=== PATIENT | female | born 1945 | race Caucasian/White ===

== ENCOUNTER 2017-06-10 08:42 | Outpatient (CLI) | payer MEDICARE ==
--- NOTE | 2017-06-10 13:52 | RAD ---
TWO VIEWS CHEST: HISTORY: Preoperative exam. COMPARISON: 09/05/2015 FINDINGS: Normal cardiac silhouette. Pulmonary vessels and hilum are normal. Costophrenic angles are clear. No masses or consolidation. No pneumothorax or osseous abnormalities. Calcified granuloma in the li ngula is noted. Interval removal of dorsal column stimulator. IMPRESSION: No acute cardiopulmonary process. POS: [facility]
--- NOTE | 2017-07-07 11:06 | EKG ---
Test Reason : Blood Pressure : / mmHG Vent. Rate : 051 BPM Atrial Rate : 051 BPM P-R Int : 170 ms QRS Dur : 086 ms QT Int : 434 ms P-R-T Axes : -13 -05 002 degrees QTc Int : 400 ms Sinus bradycardia Moderate voltage criteria for LVH, may be normal variant Borderline ECG Confirmed by ANGIE BROOKS M.D. ([id number] on 07/07/2017 11:06:07 AM Referred By: AMY Confirmed By:ANGIE BROOKS M.D.
== END 2017-06-10 08:43 | disposition home or self-care (01) ==
LOC: LABBT 08:42
PROVIDERS: ATTEND Orthopaedic Surgery
DX: Z01.818 Encounter for other preprocedural examination (principal); M16.11 Unilateral primary osteoarthritis, right hip
CPT/HCPCS: 71046; 93005; 93010

== ENCOUNTER 2017-06-10 09:00 | Inpatient (IN) | payer MEDICARE ==
[2017-06-10 09:00] VITALS: BMI 42.9
[2017-06-24] MEDS ORDERED: CEFAZOLIN/Water 2 GM/20 ML SYRINGE ONE (06:49)
[2017-06-24] MEDS ORDERED: Vancomycin HCl 1.5 GM, Admixture Fee 1 EACH in Sodium Chloride 0.9% 250 ML 300 ML IVPB SCH (07:00)
[2017-06-24] MEDS ORDERED: Fentanyl 100 MCG/2 ML VIAL SLOW IVP PRN ×2 (07:03)
[2017-06-24] MEDS ORDERED: diphenhydrAMINE 25 MG CAP PO PRN (07:03)
[2017-06-24] MEDS ORDERED: Ondansetron HCl/PF 4 MG/2 ML Vial IVP PRN ×4 (07:03→11:40)
[2017-06-24] MEDS ORDERED: traMADol HCl 50 MG TAB PO PRN ×3 (07:03→08:30)
[2017-06-24] MEDS ORDERED: HYDROcodone/Acetaminophen 10/325 mg Tablet PO PRN ×2 (07:03)
[2017-06-24] MEDS ORDERED: Zolpidem Tartrate 5 MG TAB PO PRN ×2 (07:03→08:30)
[2017-06-24] MEDS ORDERED: Acetaminophen 325 MG TAB PO PRN (07:03)
[2017-06-24] MEDS ORDERED: Promethazine HCl 25 MG/ML VIAL IM PRN ×4 (07:03→11:40)
[2017-06-24] MEDS ORDERED: Non-Formulary Item 1 EACH (Tizanidine Hcl [Tizanidine Hcl] 4 MG) PO PRN ×2 (07:03)
[2017-06-24] MEDS ORDERED: Tranexamic Acid 1,000 MG in Sodium Chloride 0.9% 100 ML IVPB SCH (07:15)
[2017-06-24] MEDS ORDERED: Midazolam HCl 2 mg/2 ml Vial ONE (07:24)
[2017-06-24] MEDS ORDERED: tiZANidine HCl 4 MG TAB PO PRN (07:41)
[2017-06-24] MEDS ORDERED: Hydrocerin (Eucerin) Cream 120 gm Jar TOP PRN (08:30)
[2017-06-24] MEDS ORDERED: fentaNYL Citrate/PF 1,250 MCG, Bupivacaine 25 ML in Sodium Chloride 0.9% 250 ML 200 ML EPIDURAL SCH (08:30)
[2017-06-24] MEDS ORDERED: HYDROcodone/Acetaminophen 5/325 mg Tablet PO PRN (08:30)
[2017-06-24] MEDS ORDERED: Ketorolac Tromethamine 30 MG/ML VIAL IVP PRN (08:30)
[2017-06-24] MEDS ORDERED: diphenhydrAMINE 50 MG/ML VIAL IM PRN (08:30)
[2017-06-24] MEDS ORDERED: Naloxone HCl 0.4 mg/ml Vial IV PRN (08:30)
[2017-06-24] MEDS ORDERED: Promethazine HCl 25 MG SUPP PR PRN (08:30)
[2017-06-24] MEDS ORDERED: Bupivacaine 0.25% 10 ML VIAL EPIDURAL PRN (08:30)
[2017-06-24] MEDS ORDERED: diphenhydrAMINE 50 MG/ML VIAL IVP PRN (08:30)
[2017-06-24] MEDS ORDERED: Naloxone HCl 0.4 mg/ml Vial IVP PRN (08:30)
[2017-06-24] MEDS ORDERED: Levothyroxine Sodium 100 MCG TAB PO SCH (09:00)
[2017-06-24] MEDS ORDERED: MULTIVITAMIN PO SCH ×2 (09:00)
[2017-06-24] MEDS ORDERED: THIAMINE HCL 250 MG PO SCH ×2 (09:00)
[2017-06-24] MEDS ORDERED: Gabapentin 100 MG CAP PO SCH (09:00)
[2017-06-24] MEDS ORDERED: Non-Formulary Item 1 EACH (Omeprazole [Omeprazole] 40 MG) PO SCH ×2 (09:00)
[2017-06-24] MEDS ORDERED: Fentanyl 100 MCG/2 ML VIAL ONE (10:04)
[2017-06-24] MEDS ORDERED: Bupivacaine/Epinephrine 0.25% 30 ML VIAL ONE (11:25)
[2017-06-24] MEDS ORDERED: HYDROmorphone 2 MG/ML VIAL SLOW IVP PRN ×2 (11:40)
[2017-06-24] MEDS ORDERED: Promethazine HCl 25 MG/ML VIAL SLOW IVP PRN ×2 (11:40)
--- NOTE | 2017-06-24 12:16 | OP ---
DATE OF PROCEDURE: 06/24/2017 PREOPERATIVE DIAGNOSIS: End-stage bicompartmental osteoarthritis, right hip. POSTOPERATIVE DIAGNOSIS: End-stage bicompartmental osteoarthritis, right hip. OPERATIVE PROCEDURE: Press-Fit right total hip arthroplasty. SURGEON: Percy Arredondo M.D. LIVESTOCK TRADER: Efren Slater PA-C. ANESTHESIA: General via endotracheal tube augmented with indwelling epidural. COMPONENTS USED: [employer] Tritanium 54 mm cluster hole shell with two 6.5 cancellous bone screws, 30 mm length and 20 mm length, Trident 10 degree polyethylene fixed bearing insert, a size 4 .5 Accolade Press-Fit hip stem with a -5 metallic femoral head 36 mm outer diameter. ESTIMATED BLOOD LOSS: 200 mL. FINDINGS: End-stage degenerative bicompartmental disease, bone on bone arthrosis, periarticular oste ophyte formation, large serous effusion, hypertrophic synovium, hypertrophic capsule. DRAINS: None. SPECIMENS: None. COMPLICATIONS: None. COUNTS: Correct. INDICATIONS FOR SURGERY: Jazzy is a 71-year-old white female who has had progressive right hip, gr oin and thigh pain upon standing and walking for greater than 10 years. She has failed conservative management. Plain radiographs demonstrated evidence of dysplasia and changes consistent with severe degenerative osteoarthrosis. PROCEDURE IN DETAIL: After informed consent was obtained in the preoperative holding area, the patie nt was taken to the operative suite where general anesthesia was induced. The patient was then posit ioned in the lateral decubitus position. The hip was then prepped and draped in usual sterile fashio n. The patient received preoperative antibiotics. Prior to incision, time-out was called and all me mbers of the surgical team agreed upon site, surgeon, and patient. After this, a longitudinal incisi on was made directly over the trochanter, noted by palpation extending 2 fingerbreadths above and bel ow the trochanter. The deeper subcutaneous layer was undermined with Bovie electrocautery. The ilio tibial band was encountered and incised sharply and the plane below this was developed bluntly. A lotus retractor was placed to hold this opened. The lateral aspect of the trochanter and the abduct or muscles were encountered and then reflected anteriorly off the trochanter using Bovie electrocaute ry. Once this was completed, the anterior capsule was then encountered and identified and copious ca psulotomy was carried out, exposing the femoral neck and head. Dislocation maneuver was then performe d and an in situ provisional neck cut was then made using the oscillating saw. Attention was then tu rned to acetabular preparation and sequential reaming was carried out up to the appropriate diameter and a trial was then malleted into place with good firm resistance and no pullout. The permanent vega tabular shell was then malleted squarely into place, as was the appropriate liner. Once completed, t he wound was copiously irrigated and attention was then turned to femoral preparation. Flexion and ex ternal rotation was performed of the exposed thigh and femoral elevators were then placed at the prox imal aspect of the wound. Canal finder was used to establish the length of the canal and sequential reaming was carried out, followed by broaching. Once the appropriate stability was established with the trial broaches with both flexion, extension and rotational stability, we did trial with neutral a nd 2 mm offset incremental necks. Once the appropriate size was decided upon, with good stability no gage with flexion, extension, internal and external rotation and shuck being negative, we removed the femoral trial broach and malletted into place the permanent prosthesis with good firm fit, which was also stable to rotation. Again, the hip felt very stable to flexion, extension, internal and externa l rotation. Leg lengths appeared near anatomic clinically and we were quite happy with prosthesis pl acement. Copious irrigation was then carried out through the entirety of the wound. Primary closure of the abductors was accomplished with interrupted #2 Vicryl [id number] stitches and the IT ban d was then closed with interrupted #2 Vicryl, oversewn with a #2 running barbed Quill stitch. Subcut aneous fascia was closed with running barbed Quill stitch and a subcuticular Monocryl barbed Quill st itch was used for skin closure and augmented with skin cement. A sterile dressing was applied. The p rocedure was terminated without any complication. All counts were correct. The patient was awakened in the operative suite and taken to the recovery room in stable condition.
[2017-06-24] MEDS: Sodium Chloride 0.9% 1,000 ML IV SCH ×2 (13:22→18:20)
[2017-06-24] MEDS: Aspirin 325 MG TAB PO SCH ×2 (13:22→21:06)
[2017-06-24] MEDS: Allopurinol 100 MG TAB PO SCH (13:22)
[2017-06-24] MEDS: Furosemide 80 MG TAB PO SCH (13:23)
[2017-06-24] MEDS: Gabapentin 400 MG CAP PO SCH (13:23)
[2017-06-24] MEDS: Metoprolol Tartrate 100 MG TAB PO SCH ×2 (13:23→21:06)
[2017-06-24] MEDS: Multivitamin W/ Minerals 1 TAB PO SCH (13:23)
[2017-06-24] MEDS: Ferrous Gluconate 324 MG TAB PO SCH ×2 (13:23→21:06)
[2017-06-24] MEDS: Senokot S 8.6-50 MG TAB PO SCH ×2 (13:24→21:06)
--- NOTE | 2017-06-24 13:53 | RAD ---
RIGHT HIP TWO VIEWS: HISTORY: A 71-year-old female with a history of prior right total hip replacement. COMPARISON: 04/02/2017 FINDINGS: There is evidence for total right hip replacement. No dislocation or periprosthetic fracture. IMPRESSION: Total hip replacement changes. POS: [facility]
[2017-06-24] MEDS ORDERED: Ketorolac Tromethamine 30 MG/ML VIAL IVP SCH (14:00)
[2017-06-24] MEDS: CEFAZOLIN/Water 2 GM/20 ML SYRINGE SLOW IVP SCH ×2 (14:33→21:07)
--- NOTE | 2017-06-24 14:50 | CON ---
DATE OF CONSULTATION: 06/24/[address] Percy Arredondo. PRIMARY CARE PROVIDER: Mati Cornejo M.D. at [facility]. HISTORY OF PRESENT ILLNESS: The patient is postop left total hip replacement for chronic disabling p ain in her left hip. Postoperatively, she has had no fever, no chills, no chest pain, no shortness o f breath, no nausea, vomiting. PAST MEDICAL HISTORY: Pertinent for hypertension, chronic back pain, total hip replacement, bilatera l total knee replacement, 2 back surgeries in the past year, gastric sleeve 2 years ago, cataract saulo abrahan bilaterally. ALLERGIES: No known allergies. HOME MEDICATIONS: Omeprazole 40 mg a day, allopurinol 100 mg a day, Tylenol #4 every 6 hours p.r.n. pain, metoprolol 100 mg twice a day, levothyroxine 88 mcg a day, Neurontin 800 mg in the morning, Las ix 60 mg in the morning, tizanidine 4 mg p.o. t.i.d. p.r.n. FAMILY HISTORY: Multiple members of her family with cancer, two aunts with breast cancer, a sister w ith ovarian cancer and a brother with prostate cancer. SOCIAL HISTORY: , no tobacco, no alcohol. FULL CODE status. , next of kin. REVIEW OF SYSTEMS: GENERAL: No headaches, dizziness, fever or chills. EYES: No double vision, santa rred vision, flashing lights. EAR, NOSE, AND THROAT: No ear pain or drainage. No nasal bleeding. No trouble swallowing. CARDIAC: No chest pain, orthopnea or paroxysmal nocturnal dyspnea. RESPIRAT ORY: No cough, wheezing or asthma. GASTROINTESTINAL: No nausea, vomiting, diarrhea or constipation . GENITOURINARY: No hematuria, dysuria or nocturia. MUSCULOSKELETAL: She has chronic swelling in her lower legs, some chronic erythema in her ankles. PSYCHIATRIC: No anxiety, depression. NEUROLOG ICAL: No strokes, seizures or focal weakness. SKIN: No chronic bruises, bleeding. No chronic rash except for some chronic mild erythema about her ankles. HEME/LYMPH: No tender or swollen lymph nod es in axilla, inguinal, or cervical area. PHYSICAL EXAMINATION: GENERAL APPEARANCE: The patient is alert, oriented, cooperative, pleasant lady. VITAL SIGNS: Blood pressure 120/70, pulse 50-60, and respirations 16. HEENT: Examination of his head, eyes, ears, nose, and throat reveal pupils are equal and round, bila teral implants. Extraocular movements are intact. Sclerae are white. Tympanic membranes clear. No se is clear. Oral mucous membranes are wet. Dental hygiene is good. NECK: No jugular venous distention, adenopathy or thyromegaly. CHEST: Clear to auscultation and percussion. HEART: Regular rate and rhythm. First and second heart sounds are clear. There are no appreciated murmurs or gallops. ABDOMEN: Soft, bowel sounds are normal. There is no hepatosplenomegaly, no mass, no rebound, no bru its. EXTREMITIES: Reveal 1-2+ edema with no cyanosis or clubbing. There is some minimal erythema about r ight both ankles with no tenderness or heat. PULSES: Carotid, radial, femoral, and dorsalis pedis pulses intact. SKIN: No bruises or chronic rashes. HEME/LYMPH: No tender or swollen lymph nodes in axilla, inguinal, or cervical area. NEUROLOGIC: Cranial nerves II-XII are intact. Moves all extremities. Sensation is intact. IMAGING DATA: EKG; sinus bradycardia, otherwise normal. LABORATORY DATA: Laboratory was done on 06/17/2016; white count 7.1, hemoglobin 13.1 and platelet co unt 223,000. INR 1.0. Creatinine was elevated at 1.17, BUN 19. Electrolytes balanced. Blood sugar 79. I have checked previous chemistry panel and she had creatinine consistent with chronic kidney d isease stage 3 on that one also. ADMITTING DIAGNOSES: 1. Status post total hip replacement. 2. Hypertension. 3. Chronic kidney disease stage 3. 4. Hypothyroidism. 5. Sinus bradycardia. 6. Chronic back pain. PLAN: 1. Patient is stable postoperatively. We will follow with you. 2. Continue with metoprolol for hypertension. 3. Continue levothyroxine for hypothyroidism. 4. Chronic kidney disease appears to be stable. No further workup planned at this time.
[2017-06-24] MEDS: diphenhydrAMINE 25 MG CAP PO PRN ×3 (15:06→23:56)
[2017-06-24] MEDS ORDERED: Glycopyrrolate 0.2 MG/ML 5 ML SYRINGE ONE (16:44)
[2017-06-24] MEDS ORDERED: ePHEDrine/0.9% NaCl/PF SYRINGE 50 mg/10 ml ONE (16:44)
[2017-06-24] MEDS ORDERED: PHENYLEPHRINE-NS 100 MCG/ML 10 ML SYRINGE ONE (16:44)
[2017-06-24] MEDS ORDERED: Dexamethasone 20 MG/5 ML VIAL ONE ×2 (16:44)
[2017-06-24] MEDS ORDERED: PROPOFOL 200 MG/20 ML VIAL ONE (16:44)
[2017-06-24] MEDS ORDERED: Lidocaine 1% PF 5 ML VIAL ONE (16:44)
[2017-06-24] MEDS ORDERED: Ondansetron HCl/PF 4 MG/2 ML Vial ONE (16:44)
[2017-06-25] MEDS: Sodium Chloride 0.9% 1,000 ML IV SCH ×2 (03:59→15:06)
[2017-06-25 05:04] LABS: Hemoglobin 11.6 g/dL (12.0-16.0); Mean Corpuscular HGB CONC 34.3 g/dL (32.0-36.0); Mean Corpuscular Volume 93.4 fl (81.0-99.0); Mean Platelet Volume 8.2 fL (7.4-10.4); Platelet Count 228 thou/uL (130-400); RBC Distribution Width 11.4 % (11.5-14.5); Red Blood Cell (RBC) Count 3.61 mill/uL (4.20-5.40); White Blood Cell (WBC) Count 13.4 thou/uL (4.8-10.8)
[2017-06-25] MEDS: diphenhydrAMINE 25 MG CAP PO PRN ×3 (06:50→20:41)
[2017-06-25] MEDS: Levothyroxine Sodium 88 MCG TAB PO SCH (06:50)
[2017-06-25] MEDS: HYDROcodone/Acetaminophen 5/325 mg Tablet PO PRN ×3 (09:01→20:42)
[2017-06-25] MEDS: Senokot S 8.6-50 MG TAB PO SCH ×2 (09:01→20:36)
[2017-06-25] MEDS: Furosemide 80 MG TAB PO SCH (09:03)
[2017-06-25] MEDS: Multivitamin W/ Minerals 1 TAB PO SCH (09:03)
[2017-06-25] MEDS: Ferrous Gluconate 324 MG TAB PO SCH ×2 (09:03→20:35)
[2017-06-25] MEDS: Aspirin 325 MG TAB PO SCH ×2 (09:03→20:35)
[2017-06-25] MEDS: Gabapentin 400 MG CAP PO SCH (09:03)
[2017-06-25] MEDS: Metoprolol Tartrate 100 MG TAB PO SCH ×2 (09:03→20:36)
[2017-06-25] MEDS: Allopurinol 100 MG TAB PO SCH (09:03)
--- NOTE | 2017-06-25 15:14 | PDOC.PN ---
- Subjective Encounter Start Date: 06/25/17 Encounter Start Time: 15:12 Subjective: post op , no complaints - Objective MAR Reviewed: Yes Vital Signs & Weight: Vital Signs (12 hours) Temp Pulse Resp BP BP Pulse Ox 06/25/17 08:00 98.6 F 77 16 91 L 06/25/17 07:27 98.6 F 77 16 135/72 91 L 06/25/17 04:00 99.1 F 70 18 96/63 99 Weight Admit Weight 250 lb Weight 250 lb I&O: 06/24/17 06/25/17 06/26/17 06:59 06:59 06:59 Intake Total 1772 Output Total 400 Balance 1372 Result Diagrams: 06/25/17 04:05 Phys Exam - Physical Examination Neck: no JVD Respiratory: clear to auscultation bilateral Cardiovascular: RRR, no significant murmur Gastrointestinal: soft, positive bowel sounds Musculoskeletal: no edema, pulses present Dx/Plan (1) Post-operative state Code(s): Z98.890 - OTHER SPECIFIED POSTPROCEDURAL STATES Status: Acute (2) HTN (hypertension) Code(s): I10 - ESSENTIAL (PRIMARY) HYPERTENSION Status: Acute Qualifiers: Hypertension type: essential hypertension Qualified Code(s): I10 - Essential (primary) hypertension (3) CKD (chronic kidney disease) stage 3, GFR 30-59 ml/min Code(s): N18.3 - CHRONIC KIDNEY DISEASE, STAGE 3 (MODERATE) Status: Chronic (4) Hypothyroidism Code(s): E03.9 - HYPOTHYROIDISM, UNSPECIFIED Status: Chronic Qualifiers: Hypothyroidism type: unspecified Qualified Code(s): E03.9 - Hypothyroidism , unspecified (5) Sinus bradycardia Code(s): R00.1 - BRADYCARDIA, UNSPECIFIED Status: Acute Comment: mild, due to b-paul - Plan PT/OT stable post-op -: cont antihypertensives, etc -: analgesia adequate * .
[2017-06-26] MEDS: Sodium Chloride 0.9% 1,000 ML IV SCH ×2 (01:01→09:52)
[2017-06-26 05:07] LABS: Hemoglobin 10.9 g/dL (12.0-16.0); Mean Corpuscular HGB CONC 34.2 g/dL (32.0-36.0); Mean Corpuscular Hemoglobin 32.1 pg (27.0-31.0); Mean Corpuscular Volume 93.8 fl (81.0-99.0); Mean Platelet Volume 7.9 fL (7.4-10.4); Platelet Count 178 thou/uL (130-400); RBC Distribution Width 11.6 % (11.5-14.5); Red Blood Cell (RBC) Count 3.41 mill/uL (4.20-5.40); White Blood Cell (WBC) Count 12.6 thou/uL (4.8-10.8)
[2017-06-26] MEDS: Levothyroxine Sodium 88 MCG TAB PO SCH (05:26)
[2017-06-26] MEDS: diphenhydrAMINE 25 MG CAP PO PRN (05:26)
[2017-06-26] MEDS: HYDROcodone/Acetaminophen 5/325 mg Tablet PO PRN ×2 (05:26→09:45)
[2017-06-26] MEDS: Aspirin 325 MG TAB PO SCH (08:51)
[2017-06-26] MEDS: Metoprolol Tartrate 100 MG TAB PO SCH (08:55)
[2017-06-26] MEDS: Furosemide 80 MG TAB PO SCH (08:55)
[2017-06-26] MEDS: Gabapentin 400 MG CAP PO SCH (08:55)
[2017-06-26] MEDS: Multivitamin W/ Minerals 1 TAB PO SCH (08:55)
[2017-06-26] MEDS: Senokot S 8.6-50 MG TAB PO SCH (08:55)
[2017-06-26] MEDS: Ferrous Gluconate 324 MG TAB PO SCH (08:55)
[2017-06-26] MEDS: Allopurinol 100 MG TAB PO SCH (08:55)
[2017-06-26 11:39] VITALS: BP 90/60; TEMP 99.3
--- NOTE | 2017-06-26 14:06 | PDOC.PN ---
- Subjective Encounter Start Date: 06/26/17 Encounter Start Time: 14:05 Subjective: minimal discomfort - Objective MAR Reviewed: Yes Vital Signs & Weight: Vital Signs (12 hours) Temp Pulse Resp BP BP Pulse Ox 06/26/17 11:38 99.3 F 71 16 90/60 92 L 06/26/17 07:55 99.5 F 73 15 103/70 92 L 06/26/17 04:24 98.9 F 76 18 99/63 91 L Weight Admit Weight 250 lb Weight 250 lb I&O: 06/25/17 06/26/17 06/27/17 06:59 06:59 06:59 Intake Total 1772 10 552 Output Total 400 700 Balance 1372 10 -148 Result Diagrams: 06/26/17 04:29 Phys Exam - Physical Examination Neck: no JVD Respiratory: clear to auscultation bilateral Cardiovascular: RRR, no significant murmur Gastrointestinal: soft, positive bowel sounds Musculoskeletal: no edema Dx/Plan (1) Post-operative state Code(s): Z98.890 - OTHER SPECIFIED POSTPROCEDURAL STATES Status: Acute (2) HTN (hypertension) Code(s): I10 - ESSENTIAL (PRIMARY) HYPERTENSION Status: Acute Qualifiers: Hypertension type: essential hypertension Qualified Code(s): I10 - Essential (primary) hypertension (3) CKD (chronic kidney disease) stage 3, GFR 30-59 ml/min Code(s): N18.3 - CHRONIC KIDNEY DISEASE, STAGE 3 (MODERATE) Status: Chronic (4) Hypothyroidism Code(s): E03.9 - HYPOTHYROIDISM, UNSPECIFIED Status: Chronic Qualifiers: Hypothyroidism type: unspecified Qualified Code(s): E03.9 - Hypothyroidism , unspecified (5) Sinus bradycardia Code(s): R00.1 - BRADYCARDIA, UNSPECIFIED Status: Acute Comment: mild, due to b-paul - Plan going to inpt rehab today * .
--- NOTE | 2017-06-26 15:06 | DIS ---
DATE OF ADMISSION: 06/24/2017 DATE OF DISCHARGE: 06/26/[address] Percy Arredondo. PRIMARY CARE PROVIDER: Dr. Mati Cornejo. DISCHARGE DISPOSITION: Discharged to rehabilitation. FINAL DIAGNOSES: Status post left total hip replacement, hypertension, chronic back pain, chronic ki dney disease stage 3, hypothyroidism, mild sinus bradycardia. DISCHARGE MEDICATIONS: Pantoprazole 40 mg a day, allopurinol 100 mg a day, Tylenol with codeine #4 o ne every 6 hours as needed for pain, metoprolol 100 mg twice a day, Synthroid 88 mcg a day, gabapenti n 800 mg in the morning, Lasix 80 mg a day, tizanidine 4 mg t.i.d. p.r.n., aspirin 325 mg a day. ALLERGIES: No known drug allergies. CODE STATUS: FULL. PENDING AT THE TIME OF DISCHARGE: Nothing. HOSPITAL COURSE: The patient admitted to the hospital under Dr. Percy Arredondo and underwent right tot al hip replacement, arthroplasty. [facility] was consulted for medical management. The patient did well during her hospital stay with no cardiorespiratory, infectious or other complications. Postop hemogl obin is 11+ or minus 0.06. White count minimally elevated 13.4-12.2. Today, her vital signs, O2 sat 92 on room air, blood pressure 103/70, temperature 99.5, pulse 73, respirations 15-16. Cardiorespir atory exam is normal. She is being discharged to inpatient rehabilitation [facility]. Post-rehabil itation, she will be followed up by her PCP Dr. Mati Cornejo.
== END 2017-06-26 14:50 | DRG 470 ==
LOC: SJJU 06-24 06:14
PROVIDERS: ADMIT Orthopaedic Surgery; ATTEND Orthopaedic Surgery
PROC: 0SR902A Replacement of Right Hip Joint with Metal on Polyethylene Synthetic Substitute, Uncemented, Open Approach (ICD-10-PCS; principal; 2017-06-24)
DX: M16.11 Unilateral primary osteoarthritis, right hip (principal); N18.3 Chronic kidney disease, stage 3 (moderate); R00.1 Bradycardia, unspecified; E03.9 Hypothyroidism, unspecified; M54.9 Dorsalgia, unspecified; G89.29 Other chronic pain; I12.9 Hypertensive chronic kidney disease with stage 1 through stage 4 chronic kidney disease, or unspecified chronic kidney disease; Z96.653 Presence of artificial knee joint, bilateral; Z79.899 Other long term (current) drug therapy
CPT/HCPCS: 36415; 85027; A4216; C1776; G8978-GP-CL; G8979-GP-CI; G8987-GO-CK; G8988-GO-CI; J1100; J1885; J2001; J2250; J2405; J2704; J3010; J3370; J3490; J7050

== ENCOUNTER 2017-06-17 09:08 | Outpatient (CLI) | payer MEDICARE ==
[2017-06-17 11:01] LABS: Hemoglobin 13.1 g/dL (12.0-16.0); Mean Corpuscular HGB CONC 33.7 g/dL (32.0-36.0); Mean Corpuscular Hemoglobin 31.3 pg (27.0-31.0); Mean Corpuscular Volume 92.9 fl (81.0-99.0); Mean Platelet Volume 7.9 fL (7.4-10.4); Platelet Count 223 thou/uL (130-400); RBC Distribution Width 11.6 % (11.5-14.5); Red Blood Cell (RBC) Count 4.17 mill/uL (4.20-5.40); White Blood Cell (WBC) Count 7.1 thou/uL (4.8-10.8)
[2017-06-17 11:14] LABS: PTT 30.6 SEC (22.9-36.1); Prothrombin Time 13.3 SEC (12.0-14.7)
[2017-06-17 11:17] LABS: Anion Gap 12 mmol/L (10-20); BUN (Urea Nitrogen) 19 mg/dL (9.8-20.1); Calc. Creatinine Clearance 0 mL/min (70-130); Calcium 9.7 mg/dL (7.8-10.44); Carbon Dioxide 30 mmol/L (23-31); Chloride 106 mmol/L (98-107); Estimated GFR-MDRD 46; Glucose 79 mg/dL (80-115); Potassium 3.8 mmol/L (3.5-5.1); Sodium 144 mmol/L (136-145)
[2017-06-17 11:50] LABS: Bilirubin Negative (Negative); Blood, Urine Negative (Negative); Clarity CLEAR (Clear); Glucose, Urine (Dipstick) Negative (Negative); Leukocyte Trace (Negative); Nitrite Negative (Negative); Protein, Urine (Dipstick) Negative (Neg-Trace); Specific Gravity, Urine 1.009 (1.002-1.036); Urobilinogen 0.2 mg/dL (0.2-1.0)
[2017-06-17 11:53] LABS: Bacteria/HPF None Seen HPF (None Seen); Hyaline Casts/LPF 0-3 HYALINE CAST LPF (0-3 Hyaline); Pathc Cast-AUWi Flag 0.43 (0-2.49); RBC/HPF 0-3 HPF (0-3); Squamous Epithelial 0-3 HPF (0-3); WBC/HPF 0-3 HPF (0-3)
== END 2017-06-17 09:09 | disposition home or self-care (01) ==
LOC: LABBT 09:08
PROVIDERS: ATTEND Orthopaedic Surgery
DX: Z01.818 Encounter for other preprocedural examination (principal); M16.11 Unilateral primary osteoarthritis, right hip
CPT/HCPCS: 80048; 81001; 85027; 85610; 85730; 86850; 86900; 86901; 87081